=== PATIENT | male | born 1950 | race Caucasian/White ===

== ENCOUNTER → 2016-06-15 | Outpatient (CLI) | payer OTHER ==
[2016-06-15 07:35] LABS: BUN/CREATININE RATIO 20.62 (6-20); CALCIUM 9.7 mg/dL (8.7-10.7); CHOL/HDL RATIO 4.48 RATIO (0-4.0); SERUM ALBUMIN 3.7 g/dL (3.5-4.8)
[2016-06-15 07:48] LABS: HEMOGLOBIN A1C 8.47 % (4.2-6.0)
[2016-06-15 07:58] LABS: CREATININE, URINE 61.6 MG/DL (15-500)
--- NOTE | 2016-06-15 21:23 | DI ---
CT CHEST SCAN WITHOUT IV CONTRAST, 06/15/2016 6:28 AM : Clinical History: Mass of the left lung. Previous Exam: 12/19/2015; 02/10/2016. Scans are performed from the base of the neck to the lower lung bases without IV contrast. Sagittal a nd coronal images using non MIPS and MIPS technique are generated. The base of the neck and thoracic inlet are normal. There are no abnormal axillary, supraclavicular, mediastinal, or hilar nodes. The heart is normal. The patient is status post CABG. There is no acute infiltrate or effusion. There is a pleural-based curvilinear noncalcified mass along the posterolater al wall of the left chest at the uppermost margin of the superior segment of the left lower lobe. Thi s mass may actually be decreasing in size although the changes in measurements are still within inter getter operator and intraoperator variability. The current estimated dimensions in terms of maximum thicknes s, maximum transverse diameter and maximum longitudinal diameter are 12 x 20 x 28 mm. The same measur ements from the study of 02/10/2016 are 12 x 21 x 33 mm, and on the study from 12/18/25 are12 x 23 x 28 mm. We now have 6 months to document stability of this lesion. A followup noncontrast CT scan in 6 months is recommended. If the lesion remains stable then the next followup would be 12 months from t hat future date. If we can have 24 documented months of stability, then this lesion can be considered to be a benign granuloma. READIN. There has been no significant change in the appearance or measurements of the pleural-based lesio n located along the posterolateral margin of the left lower lobe in the superior segment. 2. A followup noncontrast CT chest scan 6 months from today is recommended. If that study shows the lesion remains stable, then a followup study 12 months later will give us the required 24 months of d ocumented stability to identify this lesion has a benign granuloma. 3. Coronary artery disease. Status post CABG.
== END ==
LOC: LAB 06:18
PROVIDERS: ATTEND Internal Medicine
DX: E11.9 Type 2 diabetes mellitus without complications (principal); Z79.4 Long term (current) use of insulin; E78.5 Hyperlipidemia, unspecified; I10 Essential (primary) hypertension; I25.10 Atherosclerotic heart disease of native coronary artery without angina pectoris; J43.2 Centrilobular emphysema; R91.8 Other nonspecific abnormal finding of lung field; F17.200 Nicotine dependence, unspecified, uncomplicated; Z95.5 Presence of coronary angioplasty implant and graft
CPT/HCPCS: 36415; 71250; 80053; 80061; 82043; 82550; 83036

== ENCOUNTER → 2016-06-17 | Outpatient (CLI) | payer OTHER | LOC: MMPC 11:11 | PROVIDERS: ATTEND Internal Medicine | DX: E11.9 Type 2 diabetes mellitus without complications (principal); I10 Essential (primary) hypertension; E78.5 Hyperlipidemia, unspecified; G62.89 Other specified polyneuropathies; Z86.79 Personal history of other diseases of the circulatory system; Z95.1 Presence of aortocoronary bypass graft | CPT/HCPCS: 99214; G0463 ==

== ENCOUNTER → 2016-09-14 | Outpatient (CLI) | payer OTHER ==
[2016-09-14 07:14] LABS: HEMOGLOBIN A1C 7.81 % (4.2-6.0)
[2016-09-14 07:39] LABS: BLOOD UREA NITROGEN 23 mg/dL (7-22); BUN/CREATININE RATIO 19.16 (6-20); CALCIUM 9.3 mg/dL (8.7-10.7); CHOL/HDL RATIO 4.63 RATIO (0-4.0); EST GLOMERULAR FILTRATION > 60 (>60 ml/min/1.73m(2)); HDL CHOLESTEROL 30 mg/dL (40-150); SERUM ALBUMIN 3.4 g/dL (3.5-4.8); SERUM CHOLESTEROL 139 mg/dL (120-200)
== END ==
LOC: LAB 06:42
PROVIDERS: ATTEND Internal Medicine
DX: E11.9 Type 2 diabetes mellitus without complications (principal); Z79.4 Long term (current) use of insulin; E78.5 Hyperlipidemia, unspecified; I10 Essential (primary) hypertension
CPT/HCPCS: 36415; 80053; 80061; 82550; 83036

== ENCOUNTER → 2016-09-16 | Outpatient (CLI) | payer OTHER | LOC: MMPC 11:11 | PROVIDERS: ATTEND Internal Medicine | DX: E11.9 Type 2 diabetes mellitus without complications (principal); M10.9 Gout, unspecified; R91.1 Solitary pulmonary nodule; E78.5 Hyperlipidemia, unspecified; I73.9 Peripheral vascular disease, unspecified; Z95.1 Presence of aortocoronary bypass graft; Z86.79 Personal history of other diseases of the circulatory system | CPT/HCPCS: 99214; G0463 ==